=== PATIENT | male | born 1990 | race Caucasian/White ===

== ENCOUNTER 2018-05-26 11:37 | Emergency (ER) | payer BC ==
[2018-05-26 11:42] VITALS: BP 140/88
--- NOTE | 2018-05-26 12:20 | UC ---
Complaint Male HPI - HPI Summary HPI Summary: 28 yo male presents with scrotal itch. He tells me that about 3 weeks ago he had unprotected intercourse with a new partner. About 2 weeks ago developed an itch to his right groin/scrotum that has persisted since. He is concerned about possible STD. Denies fever, chills, dysuria, penile drainage, testicular pain, or rashes. - History of Current Complaint Chief Complaint: UCSTDScreening Stated Complaint: STI TESTING Time Seen by Provider: 05/26/18 12:20 Hx Obtained From: Patient Severity Currently: None Pain Intensity: 0 - Allergies/Home Medications Allergies/Adverse Reactions: Allergies Allergy/AdvReac Type Severity Reaction Status Date / Time No Known Allergies Allergy Verified 05/26/18 11:43 PMH/Surg Hx/FS Hx/Imm Hx - Additional Past Medical History Additional PMH: None - Surgical History Surgical History: None - Family History Known Family History: Positive: None - Social History Occupation: Employed Full-time Lives: With Family Alcohol Use: Occasionally Substance Use Type: None Smoking Status (MU): Never Smoked Tobacco Review of Systems All Other Systems Reviewed And Are Negative: Yes Constitutional: Positive: Negative Skin: Positive: Other - scrotal itch Respiratory: Positive: Negative Cardiovascular: Positive: Negative Gastrointestinal: Positive: Negative Genitourinary: Positive: Negative Neurovascular: Positive: Negative Neurological: Positive: Negative Psychological: Positive: Negative Physical Exam - Summary Physical Exam Summary: GENERAL: NAD. WDWN. No pain distress. SKIN: See NECK: Supple. Nontender. No lymphadenopathy. CHEST: No accessory muscle use. Breathing comfortably and in no distress. CV: Pulses intact. Cap refill <2seconds NEURO: Alert. PSYCH: Age appropriate behavior. Triage Information Reviewed: Yes Vital Signs: Initial Vital Signs Temp 98.2 F 05/26/18 11:40 Pulse 95 05/26/18 11:40 Resp 17 05/26/18 11:40 BP 140/88 05/26/18 11:40 Pulse Ox 99 05/26/18 11:40 Vital Signs Reviewed: Yes Male Genital Exam: Positive: Other - Right groin and right scrotum with mild hyperpigmentation at area of itch. Negative: Epididymal Tenderness, Erythema, Inguinal Tenderness, Lesions, Scrotum Tenderness (R), Scrotum Tenderness (L), Testicular Tenderness (R), Testicular Tenderness (L), Urethral Discharge Complaint Male Course/Dx - Course Course Of Treatment: Suspect tinea corporis. Pt is still interested in STD testing therefore will draw for this today. - Differential Dx/Diagnosis Provider Diagnosis: Tinea corporis, Possible exposure to STD Discharge - Sign-Out/Discharge Documenting (check all that apply): Patient Departure All imaging exams completed and their final reports reviewed: No Studies - Discharge Plan Condition: Stable Disposition: HOME Prescriptions: Clotrimazole 1% TOPICAL (NF) [Lotrimin 1% TOPICAL (NF)] 1 applic TOPICAL BID #1 tube Patient Education Materials: Tinea Corporis (ED) Referrals: Irineo Haywood MD [Primary Care Provider] - Additional Instructions: If you develop a fever, shortness of breath, chest pain, new or worsening symptoms - please call your PCP or go to the ED. Your blood pressure was high at todays visit. Please see your primary provider within 4 weeks for recheck and re-evaluation. Try the cream for 10-14 days to see if this improves your symptoms. We will call you in 4-5 days with your lab results - Billing Disposition and Condition Condition: STABLE Disposition: Home
[2018-05-27 10:02] LABS: Hepatitis B Surface Antigen Nonreactive (Nonreactive)
[2018-05-27 10:20] LABS: Hepatitis C Antibody Nonreactive (Nonreactive)
[2018-05-30 11:52] LABS: Herpes Simplex Virus I IgG AB Negative (Negative); Herpes Simplex Virus II IgG AB Negative (Negative)
== END 2018-05-26 12:44 | disposition home or self-care (01) ==
LOC: UCEAST 11:37
DX: B35.4 Tinea corporis (principal)
CPT/HCPCS: 36415; 80074; 86592; 86695; 86696; 86703; 87491; 87591; 99212; G0463

== ENCOUNTER 2018-09-16 16:35 | Emergency (ER) | payer BC ==
[2018-09-16 16:48] VITALS: BP 145/83
--- NOTE | 2018-09-16 16:59 | UC ---
Lower Extremity/Ankle HPI - HPI Summary HPI Summary: 28 yo male presents with LEFT ankle injury. He tells me that about 3 hours [employer] he was getting down off a hay truck and landed with his left ankle inverted. Since that time has developed pain and some swelling. Painful to ambulate. He wrapped it in an KATIA wrap and has been using crutches for support. He took 325mg ASA for his discomfort with little relief. - History of Current Complaint Chief Complaint: UCLowerExtremity Stated Complaint: L ANKLE INJURY Time Seen by Provider: 09/16/18 16:36 Hx Obtained From: Patient Onset/Duration: Sudden Onset Severity Initially: Moderate Severity Currently: Mild Pain Intensity: 2 Pain Scale Used: 0-10 Numeric Aggravating Factor(s): Standing, Ambulation Able to Bear Weight: Yes - Allergies/Home Medications Allergies/Adverse Reactions: Allergies Allergy/AdvReac Type Severity Reaction Status Date / Time No Known Allergies Allergy Verified 09/16/18 16:48 Home Medications: Home Medications Aspirin TAB* [Aspirin 325 MG TAB*] 1 tab PO Q4HR 09/16/18 [History Confirmed ] PMH/Surg Hx/FS Hx/Imm Hx - Additional Past Medical History Additional PMH: None - Surgical History Surgical History: None - Family History Known Family History: Positive: None - Social History Occupation: Employed Full-time Lives: With Family Alcohol Use: Occasionally Substance Use Type: None Smoking Status (MU): Never Smoked Tobacco Review of Systems All Other Systems Reviewed And Are Negative: Yes Constitutional: Positive: Negative Skin: Positive: Negative Respiratory: Positive: Negative Cardiovascular: Positive: Negative Neurovascular: Positive: Negative Musculoskeletal: Positive: Other: - Left ankle pain Neurological: Positive: Negative Psychological: Positive: Negative Physical Exam - Summary Physical Exam Summary: GENERAL: NAD. WDWN. No pain distress. SKIN: No rashes, sores, lesions, or open wounds. CHEST: No accessory muscle use. Breathing comfortably and in no distress. CV: Pulses intact PT and DP. Cap refill <2seconds MSK: LEFT ankle: lateral malleolus mild edema and TTP about whole lateral aspect. FROM. Strength 5/5. Negative talar tilt. No increased laxity. NEURO: Alert. Sensations intact and symmetric B/L LEs PSYCH: Age appropriate behavior. Triage Information Reviewed: Yes Vital Signs: Initial Vital Signs Temp 98 F 09/16/18 16:44 Pulse 88 09/16/18 16:44 Resp 16 09/16/18 16:44 BP 145/83 09/16/18 16:44 Pulse Ox 98 09/16/18 16:44 Vital Signs Reviewed: Yes Lower Extremity Course/Dx - Course Course Of Treatment: XR: IMPRESSION: SOFT TISSUE SWELLING, NO FRACTURE IS SEEN. Suspect ankle sprain. Pt was placed in an KATIA wrap and gel splint. Advised to RICE and continue using crutches for pain/discomfort. If symptoms do not improve in 1 week to f/u with Orthopedics. - Differential Dx/Diagnosis Provider Diagnosis: Ankle sprain Discharge - Sign-Out/Discharge Documenting (check all that apply): Patient Departure All imaging exams completed and their final reports reviewed: Yes - Discharge Plan Condition: Stable Disposition: HOME Patient Education Materials: Ankle Sprain (ED) Forms: *Work Release Referrals: Irineo Haywood MD [Primary Care Provider] - Nir Brink MD [Medical Doctor] - If Needed Additional Instructions: If you develop a fever, shortness of breath, chest pain, new or worsening symptoms - please call your PCP or go to the ED. Your blood pressure was mildly elevated at todays visit. Please see your primary provider within 4 weeks for recheck and re-evaluation. 1) Rest, Ice, and elevate your ankle as much as possible 2) Use the crutches for support and comfort 3) Use the gel ankle splint for comfort 4) If your symptoms do not improve in a few days - please call Orthopedics at the number below for a recheck - Billing Disposition and Condition Condition: STABLE Disposition: Home - Attestation Statements Provider Attestation: I was available for consult. This patient was seen by the [facility]. The patient was not presented to , seen by or examined by -Saul Ruvalcaba MD
== END 2018-09-16 17:30 | disposition home or self-care (01) ==
LOC: UCEAST 16:35
DX: S93.402A Sprain of unspecified ligament of left ankle, initial encounter (principal); X50.1XXA Overexertion from prolonged static or awkward postures, initial encounter; Y92.9 Unspecified place or not applicable
CPT/HCPCS: 99211; G0463